=== PATIENT | male | born 1935 | race Caucasian/White ===

== ENCOUNTER 2016-12-15 20:30 | Observation (INO) | payer MEDICARE ==
[~2016-12-15] VITALS: Ht 172.7 cm; Wt 66.8 kg
[2016-12-15 20:56] VITALS: BP 105/65; PULSE 103; RESP 18
[2016-12-15] MEDS ORDERED: COUM1TAB PO (21:32)
[2016-12-15] MEDS ORDERED: LINE1TAB PO (21:32)
[2016-12-15] MEDS ORDERED: ONDANSETRON HCL 4 MG/2 ML VIAL IV PUSH ONE (21:45)
[2016-12-15] MEDS ORDERED: ceFAZolin 2 GM PREMIX 50 ML IV ONE (21:45)
[2016-12-15] MEDS ORDERED: DIPHTH/TETANUS/ACEL PERTUSSIS (BOOSTER) 0.5 ML VIAL/PFS IM ONE (21:45)
[2016-12-15] MEDS ORDERED: MORPHINE SULFATE 4 MG/ML INJ IV PUSH ONE (21:45)
--- NOTE | 2016-12-15 21:45 | PD ---
HPI Chief Complaint: Fall Time Seen by Provider: 21:02 Travel History International Travel<30 days: No Contact w/Intl Traveler<30days: No Traveled to known affect area: No History of Present Illness HPI The patient is a 81 year old male who presents to the [facility] emergency department with a history of having his right leg give out on him prior to arrival. The patient landed against the doorjamb and acquired a skin tear to the left lateral arm. The patient reportedly lives at home alone. The patient reports that he gets around with the use of a walker. According to ambulance services this was bleeding a significant amount. A pressure bandage was applied. The patient initially refused transport, however because of the bleeding he agreed to be evaluated. The patient reports that he has been having problems with his right knee for 4 years. He reports that hes had a right knee replacement. He reports that he has had intermittent swelling of the right knee for the last 6 months. He recently saw his primary care physician, Dr. Antonio Campbell and was given a prescription for Linozelid. He reports that the swelling is worse. He reports the patient is noted to have shortening of the right leg with slight external rotation. The patient is unable to recall what other medications he is on. He does recall that he is anticoagulated on Coumadin. Extremely hard of hearing as any recent increased shortness of breath although he does report having a history of COPD. The patient reports that he continues to smoke a cigar occasionally. The patients blood sugar prior to arrival was 96. The patient denies any history of myocardial infarction or congestive heart failure. PFSH Past Medical History Narrative Medical PMH: The patient has a past medical history significant for atrial fibrillation , chronically anticoagulated on Coumadin, COPD, hypertension Atrial Fibrillation: Yes Congestive Heart Failure: Yes Diminished Hearing: Yes (bilateral hearing aids) Immunizations Current: Yes Past Surgical History Narrative Surgical The patients past surgical history is significant for a right knee replacement. Social History Alcohol Use: Yes (rarely) Tobacco Use: Yes (occassional cigar) Substance Use: No Allergies-Medications (Allergen,Severity, Reaction): Coded Allergies: No Known Allergies (Unverified , 12/15/16) Reported Meds & Prescriptions Reported Meds & Active Scripts Active Reported Coumadin (Warfarin) 1 Mg Tab 1 Mg PO DAILY Linezolid 600 Mg Tab 600 Mg PO Q12H Review of Systems Except as stated in HPI: all other systems reviewed are Neg General / Constitutional: No: Fever Eyes: No: Visual changes HENT: No: Headaches Cardiovascular: No: Chest Pain or Discomfort Respiratory: No: Shortness of Breath Gastrointestinal: No: Nausea, Vomiting, Diarrhea, Abdominal Pain Genitourinary: No: Dysuria Musculoskeletal: Positive: Myalgias, Arthralgias, Limited ROM, Edema, Pain Skin: Positive Other (skin tear left forearm), No Rash Neurologic: No: Weakness, Focal Abnormalities, Change in Mentation, Slurred Speech, Sensory Disturbance Psychiatric: No: Depression Endocrine: No: Polydipsia Hematologic/Lymphatic: No: Easy Bruising Physical Exam Narrative General: The patient is a well-developed well-nourished male in no acute distress, intermittently has a productive sounding cough on exam. Head and Neck exam: Head is normocephalic atraumatic. Eyes: EOMI, pupils are equal round and reactive to light. Nose: Midline septum with pink mucous membranes Mouth: Dentition unremarkable. Moist mucus membranes. Posterior oropharynx is not erythematous. No tonsillar hypertrophy. Uvula midline. Airway patent. Neck: No palpable lymphadenopathy. No nuchal rigidity. No thyromegaly. Cardiovascular: Irregularly irregular with rate control in the 80s to 90s with a 3/6 systolic murmur audible. No gallops or rubs. Lungs: Clear to auscultation bilaterally. No wheezes, rhonchi, or rales. Abdomen: Soft, without tenderness to palpation in all 4 quadrants of the abdomen. No guarding, rebound, or rigidity. Normal bowel sounds are audible. The patient has an ostomy bag that is full on arrival. The stool is brown in color. Extremities: No clubbing or cyanosis. The patient has 1+ pitting edema bilateral lower extremities. The area of interest is the right lower extremity appears to be shortened, deformity is noted at the right knee with swelling area there appears to be a small wound noted along the anterior proximal tibia that is draining a clear yellow fluid. This was cultured. The patient has erythema to the skin of the anterior tibia down to the ankle. The patient has crepitus and deformity palpated with flexion and extension of the knee. The patient has no tenderness of the proximal femur. No pain in the right hip with internal and external rotation or flexion at the hip. The patient denies having any left leg pain. There is some older appearing bruising all along the left lower leg. The patient on examination of the left forearm is noted to have 2 small skin tears. Tegaderm was applied. Back: No spinous process tenderness to palpation. No costovertebral angle tenderness to palpation. Neurologic Exam: Cranial nerves 2-12 were intact on exam. Strength is 5/5 in all 4 extremities. No sensory deficits noted. Data Data Last Documented VS Vital Signs Date Time Temp Pulse Resp B/P Pulse Ox O2 Delivery O2 Flow Rate FiO2 12/15/16 20:56 103 18 105/65 Orders Electrocardiogram (12/15/16 21:38) Complete Blood Count With Diff (12/15/16 21:38) Comprehensive Metabolic Panel (12/15/16 21:38) B-Type Natriuretic Peptide (12/15/16 21:38) Prothrombin Time / Inr (Pt) (12/15/16 21:38) Act Partial Throm Time (Ptt) (12/15/16 21:38) Blood Culture (12/15/16 21:38) Westergren Sedimentation Rate (12/15/16 21:38) Magnesium (Mg) (12/15/16 21:38) Wound Culture And Gram Stain (12/15/16 21:38) Chest, Single Ap (12/15/16 21:38) Ct Brain W/O Iv Contrast(Rout) (12/15/16 21:38) Iv Access Insert/Monitor (12/15/16 21:38) Ecg Monitoring (12/15/16 21:38) Oximetry (12/15/16 21:38) Ct Cerv Spine W/O Contrast (12/15/16 ) Knee, Complete (4vws) (12/15/16 ) Lactic Acid Sepsis Protocol (12/15/16 21:38) Cefazolin 2 Gm Premix (Ancef 2 Gm Premix (12/15/16 21:45) Hacj-Rlk-Mxqssy (Booster) Inj (Boostrix (12/15/16 21:45) Morphine Inj (Morphine Inj) (12/15/16 21:45) Ondansetron Inj (Zofran Inj) (12/15/16 21:45) Hip, Uni(Ap&Lat) W Ap Pelvis (12/15/16 ) Ct Knee W/O Contrast (12/15/16 ) Ice/Cold Pack (12/15/16 23:16) Splint Or Brace Apply/Monitor (12/15/16 23:16) Admit Order (Ed Use Only) (12/16/16 00:01) Sodium Chlorid 0.9% 500 Ml Inj (Ns 500 M (12/16/16 00:15) Labs Laboratory Tests Test 12/15/16 23:00 White Blood Count 9.0 TH/MM3 Red Blood Count 3.74 MIL/MM3 Hemoglobin 9.8 GM/DL Hematocrit 31.1 % Mean Corpuscular Volume 83.0 FL Mean Corpuscular Hemoglobin 26.3 PG Mean Corpuscular Hemoglobin 31.6 % Concent Red Cell Distribution Width 16.7 % Platelet Count 273 TH/MM3 Mean Platelet Volume 7.6 FL Neutrophils (%) (Auto) 84.9 % Lymphocytes (%) (Auto) 7.4 % Monocytes (%) (Auto) 6.9 % Eosinophils (%) (Auto) 0.3 % Basophils (%) (Auto) 0.5 % Neutrophils # (Auto) 7.6 TH/MM3 Lymphocytes # (Auto) 0.7 TH/MM3 Monocytes # (Auto) 0.6 TH/MM3 Eosinophils # (Auto) 0.0 TH/MM3 Basophils # (Auto) 0.0 TH/MM3 CBC Comment DIFF FINAL Differential Comment Prothrombin Time 13.3 SEC Prothromb Time International 1.2 RATIO Ratio Activated Partial 31.7 SEC Thromboplast Time Erythrocyte Sedimentation Rate 49 mm/hr Sodium Level 133 MEQ/L Potassium Level 4.2 MEQ/L Chloride Level 101 MEQ/L Carbon Dioxide Level 18.8 MEQ/L Anion Gap 13 MEQ/L Blood Urea Nitrogen 27 MG/DL Creatinine 1.49 MG/DL Estimat Glomerular Filtration 45 ML/MIN Rate Random Glucose 74 MG/DL Lactic Acid Level 2.2 mmol/L Calcium Level 9.1 MG/DL Magnesium Level 1.7 MG/DL Total Bilirubin 0.2 MG/DL Aspartate Amino Transf 18 U/L (AST/SGOT) Alanine Aminotransferase 15 U/L (ALT/SGPT) Alkaline Phosphatase 119 U/L B-Type Natriuretic Peptide 128 PG/ML Total Protein 7.2 GM/DL Albumin 2.7 GM/DL MDM Medical Decision Making Medical Screen Exam Complete: Yes Emergency Medical Condition: Yes Medical Record Reviewed: Yes Interpretation(s) Last Impressions Head CT 12/15/162137 Signed Impressions: Service Date/Time: Thursday, December 15, 2016 22:31 - CONCLUSION: Normal examination for a patient of this age. Jason Baker MD Chest X-Ray 12/15/162137 Signed Impressions: Service Date/Time: Thursday, December 15, 2016 21:53 - CONCLUSION: 1. Probable left seventh rib fracture without pneumothorax. Mild basilar atelectasis or scarring. Embolization coils on the left. Jason Baker MD Knee X-Ray 12/15/16 0000 Signed Impressions: Service Date/Time: Thursday, December 15, 2016 22:00 - CONCLUSION: 1. Postoperative total knee replacement with moderate to large knee joint effusion. There is some bony lucency around the femoral and tibial components of the prosthesis and some widening of the medial joint space. No acute fracture. Jason Baker MD Hip and Pelvis X-Ray 12/15/16 0000 Signed Impressions: Service Date/Time: Thursday, December 15, 2016 21:57 - CONCLUSION: 1. Advanced arthropathy of the right hip with flattening of the femoral head and marked joint space narrowing, sclerosis and superior subluxation of the right femoral head. Jason Baker MD Differential Diagnosis Right knee fracture, versus dislocation, versus femur fracture, versus hip fracture, versus hip dislocation, versus intracranial hemorrhages the patient is anticoagulated on Coumadin, versus cervical spine injury Narrative Course During the course of the patients emergency department visit, the patients history, examination, and differential diagnosis were reviewed with the patient. The patient had IV access obtained and blood work sent for analysis. The patient was placed on a air sampling and monitoring with oximetry and blood pressure monitoring. The patient had an EKG done on arrival that shows evidence of atrial fibrillation with rate control heart rate of 90, no acute ST segment elevation or depression. The patient was initially provided morphine 2 mg IV, Zofran 4 mg IV, tetanus was updated, Ancef 2 g IV was administered. The patients laboratory studies were reviewed and remarkable for a white count of 9, hemoglobin 9.8, platelets 273 with neutrophils 84.9, lymphocytes 7.4. Sedimentation rate is 49, CMP is remarkable for sodium of 133, CO2 18.8, BUN 27 , creatinine 1.49, alkaline phosphatase 119, albumin 2.7, BNP 128. Lactic acid is 2.2, PT 13.3, PTT 31.7. Radiology studies were reviewed and remarkable for a chest x-ray that shows a probable left seventh rib fracture without pneumothorax, mild bibasilar atelectasis or scarring, embolization coils on the left. Right knee x-ray reveals postoperative total knee replacement with moderate to large knee joint effusion. There is some bony lucency around the femoral and tibial components of the prosthesis and some widening of the medial joint space. No acute fracture identified. Pelvic x-ray and right hip x-ray reveals advanced arthropathy of the right hip with flattening of the femoral head and marked joint space narrowing, sclerosis and superior subluxation of the right femoral head. CT scan of the brain showed no acute abnormality. CT scan of the C- spine shows chronic degenerative disc disease at multiple levels, chronic degenerative facet disease multiple levels, no evidence of acute fracture or significant subluxation. Given the joint instability palpated in his right knee , the patient was placed in a right knee immobilizer, CT scan of the right knee was ordered. Due to the patient's inability to ambulate and the fact that he does live at home alone, the patient will be admitted to the hospital for continued evaluation and treatment and orthopedic consultation. The patients results were discussed with the patient, including the plan of care. I explained that further testing and/ or monitoring is indicated based on the patients history, examination, and/ or laboratory findings. Therefore, I recommended admission for additional evaluation. The patient expressed understanding and was agreeable with this plan. The patient was admitted to the hospital in stable condition and sent to a bed under the care of the [facility] hospitalist group. Physician Communication Physician Communication The patient's case was discussed with Alfred Hearn who did agree to admit the patient to the [facility]ist group. Diagnosis Primary Impression: Right knee injury Qualified Code: S89.91XA - Right knee injury, initial encounter Additional Impression: Inability to ambulate due to knee Admitting Information Admitting Physician Requests: Admit Med/Other Pt SpecificInfo: Prescription(s) given Disposition: 01 DISCHARGE HOME Condition: Stable Any Armando MD Dec 15, 2016 21:45
--- NOTE | 2016-12-15 22:39 | RADRPT ---
EXAM DATE/TIME: 12/15/2016 21:53 [facility] COMPARISON: No previous studies available for comparison. INDICATIONS : Fall. MEDICAL HISTORY : None. SURGICAL HISTORY : Total knee replacement, right. ENCOUNTER: Initial ACUITY: 1 day PAIN SCORE: 2/10 LOCATION: Bilateral chest FINDINGS: There is a probable fracture of the left seventh posterior rib. No pneumothorax or significant effusi on. Mild basilar density, probably atelectasis. Angiography embolization coils projects over left hil ar region. CONCLUSION: 1. Probable left seventh rib fracture without pneumothorax. Mild basilar atelectasis or scarring. Emb olization coils on the left. Jason Baker MD on December 15, 2016 at 22:31 Board Certified Radiologist. This report was verified electronically.
--- NOTE | 2016-12-15 22:41 | RADRPT ---
EXAM DATE/TIME: 12/15/2016 21:57 [facility] COMPARISON: No previous studies available for comparison. INDICATIONS : Right hip pain. MEDICAL HISTORY : None. SURGICAL HISTORY : Total knee replacement, right. ENCOUNTER: Initial ACUITY: 1 day PAIN SCORE: 2/10 LOCATION: Right Hip FINDINGS: There is flattening and some sclerosis of the femoral head and advanced arthropathy with superior lena ration and subluxation of right femoral head. Marked joint space narrowing present superiorly. 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 Bones are osteopenic. CONCLUSION: 1. Advanced arthropathy of the right hip with flattening of the femoral head and marked joint space n arrowing, sclerosis and superior subluxation of the right femoral head. Jason Baker MD on December 15, 2016 at 22:38 Board Certified Radiologist. This report was verified electronically.
--- NOTE | 2016-12-15 22:43 | RADRPT ---
EXAM DATE/TIME: 12/15/2016 22:00 [facility] COMPARISON: No previous studies available for comparison. INDICATIONS : Right knee pain. MEDICAL HISTORY : None. SURGICAL HISTORY : Total knee replacement, right. ENCOUNTER: Initial ACUITY: 1 day PAIN SCORE: 2/10 LOCATION: Right knee FINDINGS: Four view examination of the right knee demonstrates postoperative left total knee replacement. There is some lucency around the femoral component anteriorly and the tibial component posteriorly. There is a moderate-sized joint effusion. There is some widening of the joint medially. CONCLUSION: 1. Postoperative total knee replacement with moderate to large knee joint effusion. There is some bon y lucency around the femoral and tibial components of the prosthesis and some widening of the medial joint space. No acute fracture. Jason Baker MD on December 15, 2016 at 22:40 Board Certified Radiologist. This report was verified electronically.
--- NOTE | 2016-12-15 22:49 | RADRPT ---
EXAM DATE/TIME: 12/15/2016 22:31 [facility] COMPARISON: No previous studies available for comparison. INDICATIONS : Trauma. Fall. RADIATION DOSE: 32.46 CTDIvol (mGy) MEDICAL HISTORY : Chronic obstructive pulmonary disease. Hypertension. SURGICAL HISTORY : Total knee replacement, right. ENCOUNTER: Initial ACUITY: 1 day PAIN SCALE: 0/10 LOCATION: cranial TECHNIQUE: Multiple contiguous axial images were obtained of the head. Using automated exposure control and adj ustment of the mA and/or kV according to patient size, radiation dose was kept as low as reasonably a chievable to obtain optimal diagnostic quality images. FINDINGS: CEREBRUM: The ventricles are normal for age. No evidence of midline shift, mass lesion, hemorrhage or acute in farction. No extra-axial fluid collections are seen. POSTERIOR FOSSA: The cerebellum and brainstem are intact. The 4th ventricle is midline. The cerebellopontine angle i s unremarkable. EXTRACRANIAL: The visualized portion of the orbits is intact. SKULL: The calvaria is intact. No evidence of skull fracture. CONCLUSION: Normal examination for a patient of this age. Jason Baker MD on December 15, 2016 at 22:45 Board Certified Radiologist. This report was verified electronically.
--- NOTE | 2016-12-15 23:08 | RADRPT ---
EXAM DATE/TIME: 12/15/2016 22:31 [facility] COMPARISON: No previous studies available for comparison. INDICATIONS : Trauma. Fall. RADIATION DOSE: 20.25 CTDIvol (mGy) MEDICAL HISTORY : Hypertension. Chronic obstructive pulmonary disease. SURGICAL HISTORY : Total knee replacement, right. ENCOUNTER: Initial ACUITY: 1 day PAIN SCALE: 0/10 LOCATION: neck TECHNIQUE: Volumetric scanning of the cervical spine was performed. Multiplanar reconstructions in the sagittal, coronal and oblique axial planes were performed. Using automated exposure control and adjustment o f the mA and/or kV according to patient size, radiation dose was kept as low as reasonably achievable to obtain optimal diagnostic quality images. FINDINGS: VERTEBRAE: Normal vertebral body height. There is marked intervertebral disc space narrowing at C4-5, C5-6 and C 6-7. Anterior subluxation of C3 on C4. Marked left-sided degenerative facet disease at multiple levels. A right-sided 45 facet is fused no facet subluxation or fracture is identified C2-C3: The bony spinal canal is normal in size. No evidence of disc bulge or herniation. The neural forami na are bilaterally patent. C3-C4: The bony spinal canal is normal in size. No evidence of disc bulge or herniation. The neural forami na are bilaterally patent. Marked degenerative facet disease C4-C5: The bony spinal canal is normal in size. No evidence of disc bulge or herniation. The neural forami na are bilaterally patent. Right facet is fused, degenerative arthritis on the left side. C5-C6: The bony spinal canal is normal in size. No evidence of disc bulge or herniation. The neural forami na are bilaterally patent. C6-C7: The bony spinal canal is normal in size. No evidence of disc bulge or herniation. The neural forami na are bilaterally patent. C7-T1: The bony spinal canal is normal in size. No evidence of disc bulge or herniation. The neural forami na are bilaterally patent. CONCLUSION: Chronic degenerative disc disease multiple levels. Chronic degenerative facet disease multiple levels . No evidence of acute fracture or significant subluxation. Man Bain MD on December 15, 2016 at 23:03 Board Certified Radiologist. This report was verified electronically.
[2016-12-15 23:41] LABS: APTT (PATIENT) 31.7 SEC (24.3-30.1); INTERNATIONAL NORMALIZED RATIO 1.2 RATIO; PROTHROMBIN TIME - PATIENT 13.3 SEC (9.8-11.6)
[2016-12-15 23:43] LABS: AUTOMATED NEUTROPHIL # 7.6 TH/MM3 (1.8-7.7); BASOPHIL % 0.5 % (0.0-2.0); EOSINOPHIL % 0.3 % (0.0-4.0); HEMATOCRIT 31.1 % (39.0-51.0); HEMO FLAGS DIFF FINAL; LYMPH % 7.4 % (9.0-44.0); LYMPHOCYTE # 0.7 TH/MM3 (1.0-4.8); MEAN CORPUSCULAR HEMOGLOBIN 26.3 PG (27.0-34.0); MEAN CORPUSCULAR HGB CONC 31.6 % (32.0-36.0); MONO % 6.9 % (0.0-8.0); NEUT % 84.9 % (16.0-70.0); PLATELET COUNT 273 TH/MM3 (150-450); RED BLOOD COUNT 3.74 MIL/MM3 (4.50-5.90); RED CELL DISTRIBUTION WIDTH 16.7 % (11.6-17.2)
[2016-12-15 23:53] LABS: ALKALINE PHOSPHATASE 119 U/L (45-117); TOTAL BILIRUBIN ADULT 0.2 MG/DL (0.2-1.0)
[2016-12-15 23:56] LABS: ALT (GPT) 15 U/L (12-78); ANION GAP 13 MEQ/L (5-15); AST (GOT) 18 U/L (15-37); BICARBONATE 18.8 MEQ/L (21.0-32.0); BLOOD UREA NITROGEN 27 MG/DL (7-18); CHLORIDE 101 MEQ/L (98-107); GLOMERULAR FILTRATION RATE 45 ML/MIN (>89); MAGNESIUM 1.7 MG/DL (1.5-2.5); SODIUM (NA) 133 MEQ/L (136-145)
[2016-12-16 00:02] LABS: POTASSIUM 4.2 MEQ/L (3.5-5.1)
--- NOTE | 2016-12-16 00:04 | RADRPT ---
EXAM DATE/TIME: 12/15/2016 23:37 [facility] COMPARISON: KNEE RIGHT COMPLETE (4VWS), December 15, 2016, 22:00. INDICATIONS : Fall. Right knee pain. Evaluate for fracture. RADIATION DOSE: 7.83 CTDIvol (mGy) MEDICAL HISTORY : Cardiovascular disease. SURGICAL HISTORY : Total knee replacement, right. ENCOUNTER: Initial ACUITY: 1 day PAIN SCALE: 2/10 LOCATION: Right knee TECHNIQUE: Volumetric scanning of the knee was performed. Using automated exposure control and adjustment of th e mA and/or kV according to patient size, radiation dose was kept as low as reasonably achievable to obtain optimal diagnostic quality images. FINDINGS: BONES: No evidence of fracture. There are cystic areas involving the medial tibial plateau with 2 distinct a reas, both showing cortical breakthrough. The anteromedial area measures 2.8 x 1.8 cm. The posterior medial area measures 2.3 x 1.5 cm. Air-fluid collection superficial to both areas of cortical breakt hrough possible ganglion. JOINTS: Total knee arthroplasty with good alignment SOFT TISSUES: Muscles, tendons and neurovascular structures are grossly unremarkable. No evidence of mass, organize d fluid collection, or foreign body. There is some fatty atrophy of the semimembranosus muscle and th e vastus musculatureCONCLUSION: Total knee arthroplasty without evidence of fracture. There are areas of cystic change possible granu lation tissue forming in the medial aspect of the tibial plateau. Both areas are showing cortical br eakthrough with some soft tissue originating thru the areas of cortical breakthrough. Man Bain MD on December 15, 2016 at 23:59 Board Certified Radiologist. This report was verified electronically.
[2016-12-16] MEDS ORDERED: SODIUM CHLORID 0.9% 500 ML INJ 500 ML IV ONE (00:15)
[2016-12-16 01:20] LABS: LACTIC ACID GHOST NOT REPORTABLE
[2016-12-16] MEDS ORDERED: BISACODYL 10 MG SUPP RECTAL PRN (01:30)
[2016-12-16] MEDS ORDERED: SODIUM CHLORIDE 0.9% FLUSH 10 ML FLUSH IV FLUSH PRN (01:30)
[2016-12-16] MEDS ORDERED: SENNOSIDES 8.6 MG TAB PO PRN (01:30)
[2016-12-16] MEDS ORDERED: ONDANSETRON HCL 4 MG/2 ML VIAL IVP PRN (01:30)
[2016-12-16] MEDS ORDERED: NALOXONE HCL 0.4 MG/ML AMP IV PRN (01:30)
[2016-12-16] MEDS ORDERED: ACETAMINOPHEN 325 MG TAB PO PRN (01:30)
[2016-12-16] MEDS: SODIUM CHLOR 0.9% 1000 ML INJ 1,000 ML IV SCH ×2 (02:07→11:28)
[2016-12-16] MEDS: HEPARIN SODIUM - SQ 10,000 UNITS/ML VIAL SQ SCH ×2 (02:23→13:08)
[2016-12-16 06:12] VITALS: BP 174/97; PULSE 95; RESP 16; O2SAT 95
[2016-12-16] MEDS: ceFAZolin 2 GM PREMIX 50 ML IV SCH ×2 (06:18→13:08)
--- NOTE | 2016-12-16 07:14 | PD.ORT.PN ---
Subjective Subjective Remarks s/p right knee pain and feeling of kne "giving out" patient hard of hearing and poor historian. states knee done Power, but seeing Ortho doc in town. Cannot remember name of Doctor Objective Vitals Vital Signs Date Time Temp Pulse Resp B/P Pulse Ox O2 Delivery O2 Flow Rate FiO2 12/16/16 06:12 95 16 174/97 95 Room Air 12/15/16 20:56 103 18 105/65 Result Diagram: 12/15/16 2300 12/15/16 2300 Other Results Laboratory Tests Test 12/15/16 23:00 Prothrombin Time 13.3 SEC (9.8-11.6) Prothromb Time International 1.2 RATIO Ratio Imaging Last [address] 12/15/162137 Signed Impressions: Service Date/Time: Thursday, December 15, 2016 22:31 - CONCLUSION: Normal examination for a patient of this age. Jason Baker MD Chest X-Ray 12/15/162137 Signed Impressions: Service Date/Time: Thursday, December 15, 2016 21:53 - CONCLUSION: 1. Probable left seventh rib fracture without pneumothorax. Mild basilar atelectasis or scarring. Embolization coils on the left. Jason Baker MD Objective Remarks RLE: pain with movement of knee. 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 Will follow up outpatient with him. -resume diet -official consult to be dictated. Hadley Conroy Dec 16, 2016 07:14
[2016-12-16 08:25] VITALS: BP 149/96; PULSE 99; RESP 18; O2SAT 96
[2016-12-16] MEDS ORDERED: SODIUM CHLORIDE 0.9% FLUSH 10 ML FLUSH IV FLUSH SCH (09:00)
--- NOTE | 2016-12-16 09:53 | MH ---
cc: MORALES AVILA MD DATE OF ADMISSION: 12/16/2016 DATE OF : 1935 CHIEF COMPLAINT Fall and could not get up. HISTORY OF PRESENT ILLNESS This is a 81-year-old white male who came to the emergency room after calling --1 because he had fell. According to the record and the patient his right leg gave out on him. He also notes that he landed against the door jam and had bruising and skin tears to his left arm. The patient usually uses a walker or a cane to get around, but has noted some weakness and debility recently affecting his ambulation. The patient is very hard of hearing. Therefore, some of the information I am using is coming from the medical record. When entering the room the patient initially said there is nothing wrong with my right leg, then after a few questions began talking about his incident. The patient is a poor historian, is not sure what kind of medications he is on. He has no family currently in the area and rents a room from a landlord. The patient does note that he has been having problems with his right knee for years. There is a small indentation, possible wound with some dry drainage below his knee cap. He does note some intermittent swelling in his knee, more so in the past 6 months. The patient denies any chest pain, no shortness of breath, no nausea, vomiting, no dysuria, no headache, no diarrhea, no constipation. The patient is known to have COPD and still currently smokes on occasions a cigar. PAST MEDICAL HISTORY 1. Hypertension. 2. COPD. 3. Coumadin therapy. 4. History of atrial fibrillation. 5. Congestive heart failure. 6. He does wear bilateral hearing aids and is very hard of hearing. PAST SURGICAL HISTORY Right knee replacement. ALLERGIES None known. MEDICATIONS Coumadin and Linezolid. SOCIAL HISTORY The patient is , has a daughter who lives somewhere in [place]. The patient does smoke an occasional cigar and drinks beer multiple times a week. He states that he drank three beers yesterday before his fall. REVIEW OF SYSTEMS Review of systems positives as noted in the HPI, which include debility, fall, right knee pain, as well as weakness in the right knee, COPD, tobacco and alcohol use. Other systems negative or Unremarkable. Some of his systems are limited due to his mild forgetfulness or altered mental status. It is unknown whether this is acute or chronic. VITAL SIGNS: Pulse is labile between 95 and 103, respiratory rate 18, blood pressure initially in the ER on admission was 105/65, now registering 174/97. O2 sat 95 on room air. PHYSICAL EXAMINATION GENERAL: Slim white male, looks to be his stated age, resting on a stretcher, answers some simple questions, poor historian. SKIN: Skin is pale, bhavesh, warm and dry. HEENT: Atraumatic, normocephalic, PERRLA, mucous membranes pink and moist. No scleral icterus. NECK: Supple. CARDIOVASCULAR: Heart sounds, systolic murmur grade 4/6 at the left sternal border. No rubs or gallops. HEART: Heart rate is irregular with PACs, heart rate at rest appears to be in the 90s but does jump up over 100 with any activity. LUNGS: Lungs are essentially clear from wheezes or rales. He does have audible rhonchi in his upper donovan and low volumes. ABDOMEN: Abdomen is flat, soft, nontender, nondistended. Bowel sounds are active. The patient has an ostomy bag with brown stool noted. EXTREMITIES: Right leg edema 2+, which starts around the knee area and moves down the left leg, 1+ generalized lower extremities. Left forearm has bruising and skin tears which have been bandaged with Tegaderm and light dressings. Small wound noted at the bottom of the knee cap, at some point has been draining a serous fluid. He moves his upper extremities and lower extremities with purpose but he does have some generalized weakness noted in his legs. NEUROLOGIC: Neurologically, he is very hard of hearing but arouses to loud verbal stimuli. He can answer simple questions. Speech is clear. PSYCHIATRIC: Mood is appropriate. Speech is clear. DIAGNOSTIC DATA The CBC done on 12/15/2016, white blood cell count is 9, RBC is 3.74, hemoglobin 9.8, hematocrit 31.1, platelet count 273, neutrophil percentage auto 84.9, lymphocyte percentage auto 7.4, sed rate 49. PT/INR is 1.2. Chemistry sodium 133, potassium 4.2, chloride 101, carbon dioxide 18.8, amnion gap 13, BUN 27, creatinine 1.49, GFR 45, random glucose 74, lactic acid initially at 2300, last p.m. was 2.2 and is now 1.5, calcium 9.1, mag 1.7, total bilirubin 0.2, AST 18 and ALT 15, alkaline phosphatase 119, BNP 128, total protein 7.2, albumin 2.7. IMAGING STUDIES Shows chest x-ray to have a probable left seventh rib fracture without pneumo, mild bibasilar atelectasis, embolization coils on the left. CT of the head is normal. Cervical spine showed degenerative disk disease but no acute fractures. Hip and pelvis x-ray shows advanced arthropathy of the right hip with flattening of the femoral head and marked joint space narrowing, sclerosis and superior subluxation of the right femoral head. Knee x-ray shows moderate to large joint effusion, some bony lucency around the femoral and tibial components of the prosthesis, some widening of the medial joint space but no acute fracture. Lower extremity CT shows no evidence of fracture, cystic changes of the medial aspect of the tibial plateau, both areas are showing cortical breakthrough with some soft tissue originating from the areas of cortical breakthrough. This is the right knee, I am assuming total knee arthroplasty. ASSESSMENT 1. Fall with right knee injury. 2. COPD. 3. Debility with inability to ambulate. 4. Tobacco use and dependence, alcohol use and dependence. 5. History of atrial fibrillation, anticoagulated on Coumadin. 6. History of congestive heart failure. 7. Possible lactic acid sepsis of the right knee, status post fall with knee injury. 8. 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 PLAN We are going to put him in observation, monitor his vital signs q. 4. Activity will be up only with assistance. Gentle hydration with IV fluids. Reconcile his meds and he will also get p.r.n. meds for any pain, nausea, bowel regime. Orthopedic consult for their expert opinion. In the emergency room the patient got a dose of IV antibiotics, cefazolin 2 grams. He has also been placed on cefazolin 2 grams q. 8 IV. DVT prophylaxis with heparin. Heart healthy diet. The patient was evaluated by ortho which noted right TKA with osteolysis below the tibial implant. Ortho states the patient will likely need a revision of his right knee. donor center technician is going to place a knee immobilizer on. PT will work with the patient with the knee immobilizer on. The patient will be able to eat this morning, no further testing noted at this time. Case Management consulted to assist in any discharge planning needed. To my knowledge the patient is full code, full aggressive care and we will follow for his needs. Dictated by: Maru Suarez, Nurse Practitioner MD MAGNUS Felder/DEMETRIS /8:01 AM /8:35 AM seen, examined by myself, Dr Avila, today Discussed with patient Discussed with nurse The patient was seen and evaluated by orthopedics He's been discharged home with home health Follow-up with orthopedics as outpatient Continue antibiotics Discussed with mid level provider The exam, history, and the medical decision-making described in the above note were completed with the assistance of the mid-level provider. I reviewed the findings presented. I attest that I had a [id number] encounter with the patient on the same day, and personally performed and documented my assessment and findings in the medical record. GABBY
--- NOTE | 2016-12-16 10:13 | MB ---
cc: EARL RAMAN DATE OF CONSULTATION 12/16/2016 REASON FOR CONSULTATION Right knee pain. HISTORY Chavez is a 81-year-old male who presented to the emergency room after having a fall. He has a history of right total knee arthroplasty done many years ago. He normally walks with a walker. He was ambulating when his right knee buckled causing him to fall. He had a laceration of the skin on the left arm. He presented to the emergency room. He states that he feels that the right knee is somewhat unstable. He has had some right knee pain for approximately six months. He also has occasional swelling. He has recently seen Dr. Sepulveda for other problems. He states that [place]. He is unable to give a clear history of his knee pain. PAST MEDICAL HISTORY ILLNESSES 1. Fibrillation 2. Hypertension 3. Hearing loss SURGERIES Right knee replacement. ALLERGIES None MEDICATIONS 1. Coumadin 2. Linezolid SOCIAL HISTORY The patient smokes cigars and occasionally drinks alcohol. He denies drug use. FAMILY HISTORY Noncontributory REVIEW OF SYSTEMS The patient denies headache, visual changes, neck pain, chest pain, shortness of breath, abdominal pain, nausea, vomiting or recent weight loss. He complains of left arm laceration and right knee pain. PHYSICAL EXAMINATION The patient is a well-developed, well-nourished 81-year male who is in no acute distress. He is awake and alert. He answers most questions appropriately. VITAL SIGNS: Temperature 99.0, pulse 99, respirations 18, blood pressure 149/96, O2 sat 96% on room air. HEAD: The patient is normocephalic. EYES: Pupils are equal. NECK: Soft and nontender. Trachea is midline. ABDOMEN: Soft, nontender, nondistended. EXTREMITIES: Examination of bilateral upper extremities reveals no obvious pain or deformity with shoulder, elbow or wrist motion. He has a dressing on his left forearm. He has good cap refill in is fingers. Radial pulses are palpable. Sensation is intact in all fingers. Examination of the left leg reveals no significant pain with hip, knee or ankle motion. Sensation is intact to the left foot. Dorsalis pedis pulses palpable. Examination of right leg reveals no tenderness around his hip or ankle. He has mild swelling of the knee. He has a small abrasion over the anterior knee. Surgical incision is well-healed. There is no erythema. She does have some swelling about the knee. X-RAYS X-rays and CT scan of the right knee were reviewed. X-rays reveal no evidence of obvious fracture. He does have significant osteolysis around the tibial component. IMPRESSION 1. Hypertension 2. Atrial fibrillation 3. 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 PLAN Treatment options were discussed with the patient. At this point, the patient may weight-bear as tolerated on his leg. He will be fitted for a knee brace to help with his feeling of instability. I will ask that he follow up in the office with Dr. Sepulveda or Dr. Montiel for further evaluation of his right knee. If the patient is medically stable, he may eventually need a revision of his right total knee arthroplasty. The patient is in agreement with this plan. He will continue to use a walker. All questions were answered. A mid-level provider in my office (nurse practitioner or physician preschool assistant principal) may see this patient on follow-up visits and continue to implement the objectives of this plan including: Starting or adjusting medications, injections , cast application, orthotics, brace application, physical therapy, radiological studies (including x-ray, MRI, CT, ultrasound, bone scan), vascular studies, neurologic studies, specialist consultation, and proceeding with surgical management, as appropriate. MD SABINE Morales/ALOK /9:30 AM /10:05 AM GABBY
[2016-12-16] MEDS ORDERED: CARD120C4 PO (10:47)
--- NOTE | 2016-12-16 10:48 | HHI.FF ---
Face to Face Verification Diagnosis: (1) Right knee injury (2) Inability to ambulate due to knee Physical Therapy Order: Evaluate and Treat Occupational Therapy Order: Evaluate and Treat I have seen patient Chavez Treviño on 12/16/16. My clinical findings support the need for the requested home health care services because: Ltd mobility - disease progression I certify that my clinical findings support that this patient is homebound because: Post-op weakness Jeb Ortiz MD Dec 16, 2016 10:48
[2016-12-16] MEDS ORDERED: DILTIAZEM-CD 120 MG CAP ER PO SCH (13:00)
[2016-12-16] MEDS ORDERED: LINEZOLID 600 MG TAB PO SCH (13:00)
[2016-12-16 13:07] VITALS: BP 146/79; PULSE 93; RESP 16; O2SAT 96
[2016-12-16 15:51] VITALS: BP 138/80
--- NOTE | 2016-12-16 22:33 | EKG ---
Date Performed: 12/15/2016 Time Performed: 23:08:18 PTAGE: 81 years EKG: ATRIAL FIBRILLATION ABNORMAL RHYTHM ECG NO PREVIOUS TRACING DOCTOR: Samuel Brooks Interpretating Date/Time 12/16/2016 22:31:02
[2016-12-17] MEDS ORDERED: WARFARIN SOD 1 MG TAB PO SCH (16:00)
--- NOTE | 2016-12-19 18:32 | HHI.DS ---
Discharge Summary Admission Date Dec 16, 2016 at 00:04 Discharge Date: Dec 16, 2016 Admitting Diagnosis Right knee instability, inability to ambulate Brief History This was a 81-year-old white male who came to the emergency room after calling because he had fell. According to the record and the patient his right leg gave out on him. He also noted that he landed against the door jam and had bruising and skin tears to his left arm. The patient usually used a walker or a cane to get around, but has noted some weakness and debility recently affecting his ambulation. The patient was very hard of hearing. Therefore, some of the information I was using came from the medical record. When entering the room the patient initially said there was nothing wrong with my right leg, then after a few questions began talking about his incident. The patient was a poor historian, not sure what kind of medications he is on. He had no family currently in the area and rents a room from a landlord. The patient does note that he has been having problems with his right knee for years. There was a small indentation, possible wound with some dry drainage below his knee cap. He did note some intermittent swelling in his knee, more so in the past 6 months. The patient denied any chest pain, no shortness of breath, no nausea, vomiting, no dysuria, no headache, no diarrhea, no constipation. The patient was known to have COPD and still currently smokes on CBC/BMP: 12/15/16 2300 12/15/16 2300 Imaging Last Impressions Head CT 12/15/162137 Signed Impressions: Service Date/Time: Thursday, December 15, 2016 22:31 - CONCLUSION: Normal examination for a patient of this age. Jason Baker MD Chest X-Ray 12/15/162137 Signed Impressions: Service Date/Time: Thursday, December 15, 2016 21:53 - CONCLUSION: 1. Probable left seventh rib fracture without pneumothorax. Mild basilar atelectasis or scarring. Embolization coils on the left. Jason Baker MD Lower Extremity CT 12/15/16 0000 Signed Impressions: Service Date/Time: Thursday, December 15, 2016 23:37 - CONCLUSION: Total knee arthroplasty without evidence of fracture. There are areas of cystic change possible granulation tissue forming in the medial aspect of the tibial plateau. Both areas are showing cortical breakthrough with some soft tissue originating thru the areas of cortical breakthrough. Man Bain MD Knee X-Ray 12/15/16 0000 Signed Impressions: Service Date/Time: Thursday, December 15, 2016 22:00 - CONCLUSION: 1. Postoperative total knee replacement with moderate to large knee joint effusion. There is some bony lucency around the femoral and tibial components of the prosthesis and some widening of the medial joint space. No acute fracture. Jason Baker MD Hip and Pelvis X-Ray 12/15/16 0000 Signed Impressions: Service Date/Time: Thursday, December 15, 2016 21:57 - CONCLUSION: 1. Advanced arthropathy of the right hip with flattening of the femoral head and marked joint space narrowing, sclerosis and superior subluxation of the right femoral head. Jason Baker MD Cervical Spine CT 12/15/16 0000 Signed Impressions: Service Date/Time: Thursday, December 15, 2016 22:31 - CONCLUSION: Chronic degenerative disc disease multiple levels. Chronic degenerative facet disease multiple levels. No evidence of acute fracture or significant subluxation. Man Bain MD PE at Discharge GENERAL: Slim white male, looks to be his stated age, resting on a stretcher, answers some simple questions, poor historian. SKIN: Skin is pale, bhavesh, warm and dry. HEENT: Atraumatic, normocephalic, PERRLA, mucous membranes pink and moist. No scleral icterus. NECK: Supple. CARDIOVASCULAR: Heart sounds, systolic murmur grade 4/6 at the left sternal border. No rubs or gallops. HEART: Heart rate is irregular with PACs, heart rate at rest appears to be in the 90s but does jump up over 100 with any activity. LUNGS: Lungs are essentially clear from wheezes or rales. He does have audible rhonchi in his upper donovan and low volumes. ABDOMEN: Abdomen is flat, soft, nontender, nondistended. Bowel sounds are active. The patient has an ostomy bag with brown stool noted. EXTREMITIES: Right leg edema 2+, which starts around the knee area and moves down the left leg, 1+ generalized lower extremities. Left forearm has bruising and skin tears which have been bandaged with Tegaderm and light dressings. Small wound noted at the bottom of the knee cap, at some point has been draining a serous fluid. He moves his upper extremities and lower extremities with purpose but he does have some generalized weakness noted in his legs. NEUROLOGIC: Neurologically, he is very hard of hearing but arouses to loud verbal stimuli. He can answer simple questions. Speech is clear. PSYCHIATRIC: Mood is appropriate. Speech is clear. Last Impressions Head CT 12/15/162137 Signed Impressions: Service Date/Time: Thursday, December 15, 2016 22:31 - CONCLUSION: Normal examination for a patient of this age. Jason Baker MD Chest X-Ray 12/15/162137 Signed Impressions: Service Date/Time: Thursday, December 15, 2016 21:53 - CONCLUSION: 1. Probable left seventh rib fracture without pneumothorax. Mild basilar atelectasis or scarring. Embolization coils on the left. Jason Baker MD Lower Extremity CT 12/15/16 0000 Signed Impressions: Service Date/Time: Thursday, December 15, 2016 23:37 - CONCLUSION: Total knee arthroplasty without evidence of fracture. There are areas of cystic change possible granulation tissue forming in the medial aspect of the tibial plateau. Both areas are showing cortical breakthrough with some soft tissue originating thru the areas of cortical breakthrough. Man Bain MD Knee X-Ray 12/15/16 0000 Signed Impressions: Service Date/Time: Thursday, December 15, 2016 22:00 - CONCLUSION: 1. Postoperative total knee replacement with moderate to large knee joint effusion. There is some bony lucency around the femoral and tibial components of the prosthesis and some widening of the medial joint space. No acute fracture. Jason Baker MD Hip and Pelvis X-Ray 12/15/16 0000 Signed Impressions: Service Date/Time: Thursday, December 15, 2016 21:57 - CONCLUSION: 1. Advanced arthropathy of the right hip with flattening of the femoral head and marked joint space narrowing, sclerosis and superior subluxation of the right femoral head. Jason Baker MD Cervical Spine CT 12/15/16 0000 Signed Impressions: Service Date/Time: Thursday, December 15, 2016 22:31 - CONCLUSION: Chronic degenerative disc disease multiple levels. Chronic degenerative facet disease multiple levels. No evidence of acute fracture or significant subluxation. Man Bain MD Hospital Course These are the diagnosis used to treat pt. for his plan of care. 1. Fall with right knee injury. 2. COPD. 3. Debility with inability to ambulate. 4. Tobacco use and dependence, alcohol use and dependence. 5. History of atrial fibrillation, anticoagulated on Coumadin. 6. History of congestive heart failure. 7. Possible lactic acid sepsis of the right knee, status post fall with knee injury. 8. 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 Initial labs and medications from home started. Ortho consult done. Telemetry, IV access vitals q 4hr, medical management Treatment options were discussed with the patient. At this point, the patient may weight-bear as tolerated on his leg. He will be fitted for a knee brace to help with his feeling of instability. he follow up in the office with Dr. Sepulveda or Dr. Montiel for further evaluation of his right knee. If the patient is medically stable, he may eventually need a revision of his right total knee arthroplasty. The patient is in agreement with this plan. He will continue to use a walker. All questions were answered per Ortho. Pt Condition on Discharge: Stable Discharge Disposition: Disch w/ Home Health Serv Discharge Instructions DIET: Follow Instructions for: Heart Healthy Diet Activities you can perform: Weight Bearing as Ligia Other Activity Instructions: fall risk Follow up Referrals: Orthopedics @ [facility] [place] with Nicolas Sepulveda Jr., MD New Medications: Diltiazem CD 24 HR (Cardizem CD 24 HR) 120 Mg Caper 120 MG PO DAILY afib #30 Ref 3 CAP Continued Medications: Linezolid (Linezolid) 600 Mg Tab 600 MG PO Q12H Infection Ref 0 TAB Warfarin (Coumadin) 1 Mg Tab 1 MG PO DAILY Prevent Blood Clot #30 Ref 0 TAB Maru Suarez Dec 19, 2016 18:32
--- NOTE | 2016-12-19 18:36 | HHI.DS ---
Discharge Summary Admission Date Dec 15, 2016 at 00:04 Discharge Date: Dec 16, 2016 Admitting Diagnosis Right knee instability, inability to ambulate Brief History This was a 81-year-old white male who came to the emergency room after calling 04-30- because he had fell. According to the record and the patient his right leg gave out on him. He also noted that he landed against the door jam and had bruising and skin tears to his left arm. The patient usually used a walker or a cane to get around, but has noted some weakness and debility recently affecting his ambulation. The patient was very hard of hearing. Therefore, some of the information I am using is coming from the medical record. When entering the room the patient initially said there is nothing wrong with my right leg, then after a few questions began talking about his incident. The patient was a poor historian, is not sure what kind of medications he is on. He has no family currently in the area and rents a room from a landlord. The patient does note that he has been having problems with his right knee for years. There was a small indentation, possible wound with some dry drainage below his knee cap. He did note some intermittent swelling in his knee, more so in the past 6 months. The patient denied any chest pain, no shortness of breath, no nausea, vomiting, no dysuria, no headache, no diarrhea, no constipation. The patient was known to have COPD and still currently smokes on CBC/BMP: 12/15/16 2300 12/15/16 2300 Imaging Last Impressions Head CT 12/15/162137 Signed Impressions: Service Date/Time: Thursday, December 15, 2016 22:31 - CONCLUSION: Normal examination for a patient of this age. Jason Baker MD Chest X-Ray 12/15/162137 Signed Impressions: Service Date/Time: Thursday, December 15, 2016 21:53 - CONCLUSION: 1. Probable left seventh rib fracture without pneumothorax. Mild basilar atelectasis or scarring. Embolization coils on the left. Jason Baker MD Lower Extremity CT 12/15/16 0000 Signed Impressions: Service Date/Time: Thursday, December 15, 2016 23:37 - CONCLUSION: Total knee arthroplasty without evidence of fracture. There are areas of cystic change possible granulation tissue forming in the medial aspect of the tibial plateau. Both areas are showing cortical breakthrough with some soft tissue originating thru the areas of cortical breakthrough. Man Bain MD Knee X-Ray 12/15/16 0000 Signed Impressions: Service Date/Time: Thursday, December 15, 2016 22:00 - CONCLUSION: 1. Postoperative total knee replacement with moderate to large knee joint effusion. There is some bony lucency around the femoral and tibial components of the prosthesis and some widening of the medial joint space. No acute fracture. Jason Baker MD Hip and Pelvis X-Ray 12/15/16 0000 Signed Impressions: Service Date/Time: Thursday, December 15, 2016 21:57 - CONCLUSION: 1. Advanced arthropathy of the right hip with flattening of the femoral head and marked joint space narrowing, sclerosis and superior subluxation of the right femoral head. Jason Baker MD Cervical Spine CT 12/15/16 0000 Signed Impressions: Service Date/Time: Thursday, December 15, 2016 22:31 - CONCLUSION: Chronic degenerative disc disease multiple levels. Chronic degenerative facet disease multiple levels. No evidence of acute fracture or significant subluxation. Man Bain MD Pt Condition on Discharge: Stable Discharge Disposition: Disch w/ Home Health Serv Discharge Instructions DIET: Follow Instructions for: Heart Healthy Diet Activities you can perform: Weight Bearing as Ligia Other Activity Instructions: fall risk Follow up Referrals: Orthopedics @ [facility] with Nicolas Sepulveda Jr., MD New Medications: Diltiazem CD 24 HR (Cardizem CD 24 HR) 120 Mg Caper 120 MG PO DAILY afib #30 Ref 3 CAP Continued Medications: Linezolid (Linezolid) 600 Mg Tab 600 MG PO Q12H Infection Ref 0 TAB Warfarin (Coumadin) 1 Mg Tab 1 MG PO DAILY Prevent Blood Clot #30 Ref 0 TAB Maru Suarez Dec 19, 2016 18:36
== END 2016-12-16 16:02 | disposition home health service (06) ==
LOC: NEPE 20:30 → INTOOBSV 12-16 00:04 → NEDA 12-16 00:04 → NEDH 12-16 06:31
PROVIDERS: ADMIT Specialist; ATTEND Specialist
DX: S89.91XA Unspecified injury of right lower leg, initial encounter (principal); M25.361 Other instability, right knee; S40.022A Contusion of left upper arm, initial encounter; I11.0 Hypertensive heart disease with heart failure; I50.9 Heart failure, unspecified; H91.90 Unspecified hearing loss, unspecified ear; I48.91 Unspecified atrial fibrillation; J44.9 Chronic obstructive pulmonary disease, unspecified; F17.210 Nicotine dependence, cigarettes, uncomplicated; Z96.651 Presence of right artificial knee joint; Z79.01 Long term (current) use of anticoagulants; W23.1XXA Caught, crushed, jammed, or pinched between stationary objects, initial encounter
CPT/HCPCS: 70450; 71010; 72125; 73502; 73564; 73700; 80053; 83605; 83735; 83880; 85025; 85610; 85652; 85730; 86403; 87040; 87070; 87186; 87205; 90471; 90715; 93005; 96365; 96375; 97163; 99285; G0378; G8987; G8988; J0690; J1644; J2270; J2405; J7030; J7040; L1830